=== PATIENT | male | born 1960 | race Two or more races ===

== ENCOUNTER 2024-03-10 14:13 | Emergency (ER) | payer SELFPAY ==
[~2024-03-10] VITALS: Ht 177.8 cm; Wt 90.0 kg
[2024-03-10 14:16] VITALS: O2SAT 98
[2024-03-10 15:23] VITALS: BP 132/81; PULSE 73; RESP 16; TEMP 36.94740; O2SAT 98
[2024-03-10 15:39] LABS: CARBON DIOXIDE 23 mEq/L (21-32); CHLORIDE 100 mEq/L (98-107); POTASSIUM 3.8 mEq/L (3.5-5.1); SODIUM 132 mEq/L (136-145)
[2024-03-10 15:40] LABS: CALCIUM 9.1 mg/dL (8.7-10.4)
[2024-03-10 15:44] LABS: CREATININE 1.6 mg/dL (0.6-1.3)
[2024-03-10 15:45] LABS: GLUCOSE 102 mg/dL (70-105); UREA NITROGEN BLOOD 11 mg/dL (9-23)
[2024-03-10 15:46] LABS: ALANINE AMINOTRANSFERASE 22 IU/L (10-49); ASPARTATE AMINOTRANSFERASE 46 IU/L (<34); INR 1.1; PROTHROMBIN TIME 12.2 sec (9.6-11.0)
[2024-03-10 15:47] LABS: BILIRUBIN DIRECT 0.6 mg/dL (<=3.0); BILIRUBIN TOTAL 1.4 mg/dL (0.1-1.0); PROTEIN TOTAL 7.4 g/dL (6.0-8.3)
[2024-03-10 15:48] LABS: BASOPHILS % 0.7 % (0.0-2.0); EOSINOPHILS % 5.5 % (0.0-5.0); HEMATOCRIT. 44.7 % (42.0-52.0); HEMOGLOBIN. 14.7 g/dL (14.0-18.0); LYMPHOCYTES % 21.6 % (20.0-50.0); MEAN CORPUSCULAR HEMOGLOBIN 30.1 pg (28.0-32.0); MEAN CORPUSCULAR HGB CONC 32.8 g/dL (31.0-37.0); MEAN CORPUSCULAR VOLUME 91.8 fL (80.0-94.0); MEAN PLATELET VOLUME 9.1 fl (7.4-10.4); MONOCYTES % 12.6 % (2.0-8.0); NEUTROPHILS % 59.6 % (40.0-76.0); PLATELET 161 x1000/uL (130-400); RED BLOOD CELL COUNT 4.87 mill/uL (4.7-6.1); RED CELL DISTRIBUTION WIDTH 13.9 % (11.6-14.6)
[2024-03-10 15:49] LABS: TROPONIN I HIGH SENSITIVITY 947 ng/L (3.0-53)
[2024-03-10] MEDS: ASPIRIN 81MG TABLET PO ONE (16:00)
[2024-03-10 17:07] LABS: TROPONIN I HIGH SENSITIVITY 960 ng/L (3.0-53)
[2024-03-10] MEDS ORDERED: CLONIDINE 0.1MG TABLET PO PRN (22:30)
[2024-03-10] MEDS ORDERED: LACTATED RINGERS IV ONE (22:30)
[2024-03-10] MEDS ORDERED: ONDANSETRON HCL 4MG/2ML INJ IV PRN (22:30)
[2024-03-10] MEDS ORDERED: ACETAMINOPHEN 325MG TABLET PO PRN ×2 (22:30)
[2024-03-10] MEDS ORDERED: MAGNESIUM/ALUMINUM HYDROXIDE/SIMETHICONE 30ML UDC PO PRN (22:30)
[2024-03-10] MEDS ORDERED: GUAIFENESIN 200MG/10ML SUGAR FREE UDC PO PRN (22:30)
[2024-03-10] MEDS ORDERED: DOCUSATE SODIUM 100MG CAPSULE PO PRN (22:30)
[2024-03-10] MEDS ORDERED: KETOROLAC 15MG/ML VIAL IV PRN (22:30)
[2024-03-10] MEDS ORDERED: IPRATROPIUM/ALBUTEROL 0.5-3(2.5)MG/3ML NEB NEB PRN (22:30)
[2024-03-10] MEDS ORDERED: ZOLPIDEM TARTRATE 5MG TABLET PO PRN (22:30)
[2024-03-10] MEDS ORDERED: NITROGLYCERIN 0.4MG TABLET SL SL PRN (22:30)
[2024-03-11] MEDS ORDERED: ASPIRIN 81MG EC TABLET PO SCH (09:00)
[2024-03-11] MEDS ORDERED: FAMOTIDINE 20MG TABLET PO SCH (09:00)
== END 2024-03-10 22:38 | disposition left against medical advice (07) ==
LOC: ER 14:13 → EDBEDREQTM 16:03 → EDBEDREQ 16:03 → ER 22:38
DX: R55 Syncope and collapse (principal); I48.91 Unspecified atrial fibrillation; E11.9 Type 2 diabetes mellitus without complications; I21.4 Non-ST elevation (NSTEMI) myocardial infarction; N17.9 Acute kidney failure, unspecified; Z20.822 Contact with and (suspected) exposure to COVID-19
CPT/HCPCS: 80076; 80048; 83880; 83690; 85025; 85610; 85730; 84484; 87804 ×2; 36415; 71045; 93005; 99291; 87426; Z7610